=== PATIENT | male | born 2000 | race Asian ===

== ENCOUNTER 2021-07-13 09:01 | Outpatient (CLI) | payer BC | END 2021-07-13 09:02 | disposition home or self-care (01) | LOC: CSHULT 09:01 | PROVIDERS: ATTEND Physician Assistant Medical | DX: B18.1 Chronic viral hepatitis B without delta-agent (principal); R63.4 Abnormal weight loss; K76.0 Fatty (change of) liver, not elsewhere classified | CPT/HCPCS: 76705 ==